=== PATIENT | female | born 1970 | race Asian ===

== ENCOUNTER 2018-06-28 05:18 | Inpatient (IN) | payer OTHER ==
[2018-06-27 10:36] VITALS: BMI 21.2
--- NOTE | 2018-06-28 06:57 | HP ---
History & Physical Update - Physical Physical: No Change - Assessment Assessment: No Change - Plan Plan: No Change (for supracervical abdominal hysterectomy, bilateral salpingectomy)
[2018-06-28] MEDS ORDERED: DEXAMETHASONE SOD PHOSPHATE/PF 10 MG/ML SDV ONE (07:23)
[2018-06-28] MEDS ORDERED: BUPIVACAINE HCL/PF 0.5% (5MG/ML) 10 ML VIAL ONE (07:24)
[2018-06-28] MEDS ORDERED: SEVOFLURANE 250 ML BTL ONE (07:24)
[2018-06-28] MEDS ORDERED: DEXMEDETOMIDINE HCL 200 MCG/2 ML ML IVPB ONE (07:24)
[2018-06-28] MEDS ORDERED: DESFLURANE GAS 240 ML BOTTLE IH ONE (07:24)
[2018-06-28] MEDS ORDERED: KETAMINE HCL 200 MG/20 ML VIAL ONE (07:32)
[2018-06-28] MEDS ORDERED: ROCURONIUM BROMIDE 50 MG/5 ML VIAL ONE (07:32)
[2018-06-28] MEDS ORDERED: MIDAZOLAM HCL 2 MG/2 ML SINGLE DOSE VIAL ONE ×2 (07:32)
[2018-06-28] MEDS ORDERED: SUCCINYLCHOLINE CHLORIDE 200 MG/10 ML VIAL ONE (07:32)
[2018-06-28] MEDS ORDERED: PROPOFOL 20 ML ONE ×3 (07:32→09:00)
[2018-06-28] MEDS ORDERED: DEXAMETHASONE SOD PHOSPHATE 4 MG/1 ML VIAL ONE ×2 (07:38→08:53)
[2018-06-28] MEDS ORDERED: SODIUM CHLORIDE 0.9% P/F 10 ML VIAL IJ ONE (07:38)
[2018-06-28] MEDS ORDERED: ceFAZolin SODIUM 1 GM VIAL ONE (07:38)
[2018-06-28] MEDS ORDERED: KETOROLAC TROMETHAMINE 30 MG/1 ML VIAL ONE (07:38)
[2018-06-28] MEDS ORDERED: LIDOCAINE HCL/PF 2% SDV 5ML VIAL ONE (07:38)
[2018-06-28] MEDS ORDERED: ONDANSETRON 4 MG/2 ML VIAL IVPUSH PRN (07:40)
[2018-06-28] MEDS ORDERED: LACTATED RINGERS SOLUTION 1,000 ML IV SCH (07:45)
--- NOTE | 2018-06-28 07:52 | HP ---
Past Medical History - Primary Care Physician PCP:: Faheem Coppola - Admission Chief Complaint: pelvic pain, menometrorrhagia, fibroid uterus History of Present Illness: 48 yof with hx of menometrorrhagia, pelvic pain, and fibroid uterus admitted for supracervical abdominal hysterectomy, bilateral salpingectomy . risk of procedure and ulternatives to surgery discussed . History Source: Patient Limitations to Obtaining History: No Limitations - Past Medical History Heme/Onc: Yes: Anemia - Past Surgical History Hx Myomectomy: No Hx Transabdominal Cerclage: No - Smoking History Smoking history: Never smoked Have you smoked in the past 12 months: No - Alcohol/Substance Use Hx Alcohol Use: No - Social History Usual Living Arrangement: Yes: With Spouse History of Recent Travel: No Home Medications - Allergies Allergies/Adverse Reactions: Allergies Allergy/AdvReac Type Severity Reaction Status Date / Time banana Allergy Intermediate ITCH IN Verified 05/13/16 10:37 THROAT No Known Drug Allergies Allergy Verified 06/07/12 11:02 SEASONAL Allergy Uncoded 06/07/12 08:21 - Home Medications Home Medications: Ambulatory Orders Calcium Carbonate [Calcium] 500 mg PO DAILY 05/13/16 Ferrous Sulfate [Feosol] 325 mg PO DAILY 05/13/16 Loratadine [Claritin -] 10 mg PO DAILY PRN 05/13/16 Review of Systems - Review of Systems Constitutional: reports: No Symptoms Eyes: reports: No Symptoms HENT: reports: No Symptoms Neck: reports: No Symptoms Cardiovascular: reports: No Symptoms Respiratory: reports: No Symptoms Gastrointestinal: reports: Abdominal Pain Genitourinary: reports: Frequency, Vaginal Bleeding Breasts: reports: No Symptoms Reported Musculoskeletal: reports: No Symptoms Integumentary: reports: No Symptoms Neurological: reports: No Symptoms Endocrine: reports: No Symptoms Hematology/Lymphatic: reports: No Symptoms Psychiatric: reports: No Symptoms 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: Vital Signs Temperature 98.2 F 06/28/18 07:17 Pulse Rate 92 H 06/28/18 07:17 Respiratory Rate 18 06/28/18 07:17 Blood Pressure 142/87 06/28/18 07:17 O2 Sat by Pulse Oximetry (%) 98 06/28/18 07:22 Constitutional: Yes: Well Nourished, No Distress, Calm Eyes: Yes: WNL, Conjunctiva Clear, EOM Intact HENT: Yes: WNL, Atraumatic, Normocephalic Neck: Yes: WNL, Supple, Trachea Midline Cardiovascular: Yes: WNL, Regular Rate and Rhythm Respiratory: Yes: WNL, Regular, CTA Bilaterally Gastrointestinal: Yes: WNL ...Rectal Exam: Yes: WNL Renal/: Yes: WNL External Genitalia: Yes: Normal Vaginal Exam: Yes: Normal Cervix: Yes: Normal Uterus: Yes: Enlarged, Mass (fibroid uterus, 12 weeks) Adnexa: Not Palpable: Left, Right Breast(s): Yes: WNL Musculoskeletal: Yes: WNL Extremities: Yes: WNL Edema: No Integumentary: Yes: WNL Neurological: Yes: WNL, Alert, Oriented ...Motor Strength: WNL Psychiatric: Yes: WNL, Alert, Oriented Problem List - Problem (1) Menometrorrhagia Code(s): N92.1 - EXCESSIVE AND FREQUENT MENSTRUATION WITH IRREGULAR CYCLE (2) Pelvic pain Code(s): R10.2 - PELVIC AND PERINEAL PAIN (3) Fibroid Code(s): D21.9 - BENIGN NEOPLASM OF CONNECTIVE AND OTHER SOFT TISSUE, UNSP Assessment/Plan admit for supracervical abdominal hysterectomy, bilateral salpingectomy
[2018-06-28] MEDS ORDERED: CEFAZOLIN 1 GM/D5W 1 GM/50 ML BAG IVPB ONE (07:54)
[2018-06-28] MEDS ORDERED: ceFAZolin SODIUM 1 GM VIAL IVPB ONE (08:28)
[2018-06-28] MEDS ORDERED: GLYCOPYRROLATE 0.2 MG/1 ML VIAL ONE ×2 (09:33→09:35)
[2018-06-28] MEDS ORDERED: NEOSTIGMINE METHYLSULFATE 0.5 MG/ML - 10 ML MDV ONE (09:39)
[2018-06-28] MEDS ORDERED: IBUPROFEN 800 MG/8 ML IJ IVPB PRN (10:00)
[2018-06-28] MEDS ORDERED: ELECTROLYTE-148 SOLN 1,000 ML IV SCH (10:00)
[2018-06-28] MEDS: ONDANSETRON 4 MG/2 ML VIAL IVPUSH PRN ×2 (10:15→21:00)
[2018-06-28] MEDS ORDERED: ACETAMINOPHEN 1000 MG/100 ML VIAL (NON FORMULARY) IVPB ONE (10:30)
[2018-06-28] MEDS ORDERED: MIDAZOLAM HCL 2 MG/2 ML SINGLE DOSE VIAL IVPUSH ONE (10:30)
--- NOTE | 2018-06-28 11:38 | OP ---
DATE OF OPERATION: 06/28/2018 PREOPERATIVE DIAGNOSES: Menometrorrhagia, pelvic pain, fibroid uterus. POSTOPERATIVE DIAGNOSES: Menometrorrhagia, pelvic pain, fibroid uterus. PROCEDURE: Abdominal hysterectomy and bilateral salpingectomy. SURGEON: Faheem Coppola MD CHARTERED ACCOUNTANT: Zaire Arias MD ANESTHESIA: General. ANESTHESIOLOGIST: Phillip Esparza MD ESTIMATED BLOOD LOSS: 150 mL DESCRIPTION OF OPERATIVE PROCEDURE: Patient was taken to the operating room. Under adequate general anesthesia, abdomen and perineum were prepped and draped. Pfannenstiel abdominal skin incision was made. Abdominal wall was cut layer by layer. Anterior peritoneum was exposed and incised. Upon entry into the abdominal cavity, upper abdomen was checked, was normal. Bowels were packed away. The uterus was enlarged consistent with adenomyosis and also had a posterior cervical fibroid. No pelvic adhesions. Bladder and ovaries, both the ovaries appeared to be normal. Then, both cornual regions were grasped with the care of [place], and then, the uterus was delivered. Then, both round ligaments were identified bilaterally, clamped with the bipolar cautery, cauterized, and cut. Then, the anterior leaf of the broad ligament was opened. Bladder was pushed down. Then, right and left tube were removed with a bipolar LigaSure cautery, cauterizing along the mesosalpinx. Then, a hole was made into the broad ligament. Ovarian ligament was grasped with a Marline clamp, cut, and the clamp replaced with 0 Vicryl ties bilaterally. Then, bladder was further pushed down. The uterine artery was identified bilaterally, clamped, and cut, and the clamp replaced with 0 Vicryl suture bilaterally. There was a large posterior uterine fibroid which was extended to the lower part of cervix. Therefore, most portion of the cervix had to be removed secondary to the posterior fibroid. Then, paracervical area was grasped with Marline clamp, cut, and the clamp replaced with 0 Vicryl suture bilaterally. Then, cervicovaginal angle was reached below the fibroid and then grasped with Marline clamp, cut, and the clamp replaced with 0 Vicryl suture bilaterally. At this time, the specimen was removed with cautery, and then, vaginal cuff was closed with interrupted suture of 1 Vicryl. Hemostasis was established. The pelvic cavity was several times irrigated. No active bleeding was seen. All the lap pad, sponge, and instrument count were correct. Then, peritoneum was closed with 0 Vicryl continuous suture. Muscles were brought together with interrupted suture of 0 Vicryl. Fascia was closed with 0 Vicryl continuous suture, subcutaneous fat with interrupted suture of 0 Vicryl, and the skin was closed with 3-0 Vicryl continuous subcuticular suture. Patient tolerated the procedure well, left the OR in good condition. Julio [id number]
[2018-06-28] MEDS ORDERED: HYDROmorphone *PCA* 10MG/50ML DISP.SYRIN PCA ONE (12:06)
[2018-06-28] MEDS ORDERED: HYDROmorphone *PCA* 10MG/50ML DISP.SYRIN PCA SCH ×2 (13:45→14:38)
[2018-06-28] MEDS ORDERED: CEFAZOLIN 1 GM/D5W 1 GM/50 ML BAG IVPB SCH (18:00)
[2018-06-28] MEDS ORDERED: BISACODYL 5 MG TABLET.DR (FP) PO PRN (19:14)
[2018-06-29] MEDS ORDERED: ceFAZolin SODIUM 1 GM VIAL ONE ×2 (02:02→10:06)
[2018-06-29] MEDS ORDERED: DEXTROSE 5%-WATER - 50 ML IVPB ONE ×2 (02:02→10:06)
[2018-06-29] MEDS: CEFAZOLIN 1 GM in DEXTROSE 5%-WATER - 50 ML IVPB SCH ×2 (02:09→10:14)
[2018-06-29] MEDS: oxyCODONE HCL 5 MG TABLET PO PRN ×2 (02:21→22:02)
[2018-06-29 08:04] LABS: HEMATOCRIT 34.7 % (32.4-45.2); HEMOGLOBIN 11.3 GM/dL (10.7-15.3); MCHC 32.5 g/dl (32.0-36.0); MEAN CELL VOLUME 86.2 fl (80-96); MEAN PLT VOLUME 8.8 fl (7.5-11.1); PLATELET COUNT 327 K/MM3 (134-434); RBC 4.03 M/mm3 (3.60-5.2); RDW 12.9 % (11.6-15.6); WHITE BLOOD COUNT 12.3 K/mm3 (4.0-10.0)
[2018-06-29 08:17] LABS: ANION GAP 7 MMOL/L (8-16); BLOOD UREA NITROGEN 9 mg/dL (7-18); CALCIUM 8.2 mg/dL (8.5-10.1); CHLORIDE 105 mmol/L (98-107); CO2 26 mmol/L (21-32); CREATININE 0.5 mg/dL (0.55-1.3); GLUCOSE,RANDOM 100 mg/dL (74-106); SODIUM 138 mmol/L (136-145)
[2018-06-29] MEDS ORDERED: oxyCODONE HCL 5 MG TABLET PO PRN (08:20)
[2018-06-29] MEDS ORDERED: PCA PUMP KEY 1 EACH EACH ONE (08:24)
[2018-06-29] MEDS: IBUPROFEN 600 MG TABLET (FP) PO PRN ×3 (08:30→22:03)
[2018-06-29] MEDS: SIMETHICONE 80 MG TAB.CHEW (FP) PO PRN ×3 (08:30→22:06)
[2018-06-29] MEDS: ACETAMINOPHEN 325 MG TABLET (FP) PO PRN ×2 (08:33→14:04)
[2018-06-29] MEDS: ENOXAPARIN NA (PORCINE) 40 MG/0.4 ML DISP.SYRIN SQ SCH (10:15)
--- NOTE | 2018-06-29 11:27 | PN ---
Progress Note (short form) - Note Progress Note: pod 1, s/o abdominal hysterectomy . doing well, has mild supra pubic pain CBC, BMP 06/29/18 06:00 06/29/18 06:00 Last Vital Signs Temp Pulse Resp BP Pulse Ox 98.5 F 107 H 20 133/84 98 06/29/18 06:00 06/29/18 06:00 06/29/18 06:00 06/29/18 06:00 06/28/18 21:00 abdomen soft, no distension, no cva incision dry, no bleeding no calf tenderness plan ambulate, advance diet,, pain mangement plan for d/c home in am Problem List - Problems (1) Menometrorrhagia Code(s): N92.1 - EXCESSIVE AND FREQUENT MENSTRUATION WITH IRREGULAR CYCLE (2) Pelvic pain Code(s): R10.2 - PELVIC AND PERINEAL PAIN (3) Fibroid Code(s): D21.9 - BENIGN NEOPLASM OF CONNECTIVE AND OTHER SOFT TISSUE, UNSP
--- NOTE | 2018-06-29 15:57 | PN ---
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
--- NOTE | 2018-06-30 07:24 | PN ---
Progress Note (short form) - Note Progress Note: pod 2 doing well, passing gas , voids ok CBC, BMP 06/29/18 06:00 06/29/18 06:00 Last Vital Signs Temp Pulse Resp BP Pulse Ox 97.9 F 86 20 130/77 99 06/29/18 21:00 06/29/18 21:00 06/29/18 21:00 06/29/18 21:00 06/29/18 21:00 abdomen soft, no distension, no cva incision dry, clean no calf tenderness plan d/c home , follow up office 2 weeks Problem List - Problems (1) Menometrorrhagia Code(s): N92.1 - EXCESSIVE AND FREQUENT MENSTRUATION WITH IRREGULAR CYCLE (2) Pelvic pain Code(s): R10.2 - PELVIC AND PERINEAL PAIN (3) Fibroid Code(s): D21.9 - BENIGN NEOPLASM OF CONNECTIVE AND OTHER SOFT TISSUE, UNSP
--- NOTE | 2018-06-30 08:44 | DS ---
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 Vital Signs: Vital Signs Temperature 97.9 F 06/29/18 21:00 Pulse Rate 86 06/29/18 21:00 Respiratory Rate 20 06/29/18 21:00 Blood Pressure 130/77 06/29/18 21:00 O2 Sat by Pulse Oximetry (%) 99 06/29/18 21:00 Constitutional: Yes: Well Nourished, No Distress, Calm Eyes: Yes: WNL, Conjunctiva Clear, EOM Intact HENT: Yes: WNL, Atraumatic, Normocephalic Neck: Yes: WNL, Supple, Trachea Midline Cardiovascular: Yes: WNL, Regular Rate and Rhythm Respiratory: Yes: WNL, Regular, CTA Bilaterally Gastrointestinal: Yes: WNL ...Rectal Exam: Yes: WNL Renal/: Yes: WNL Breast(s): Yes: WNL Musculoskeletal: Yes: WNL Extremities: Yes: WNL Edema: No Integumentary: Yes: WNL Wound/Incision: Yes: Clean/Dry, Well Approximated, Sutures Intact Neurological: Yes: WNL, Alert, Oriented ...Motor Strength: WNL Psychiatric: Yes: WNL, Alert, Oriented Labs: CBC, BMP 06/29/18 06:00 06/29/18 06:00 Discharge Summary Reason For Visit: PELVIC PAIN, EDOMETRIOSIS OF UTERUS Current Active Problems Fibroid (Acute) Menometrorrhagia (Acute) Pelvic pain (Acute) Procedures: Principal: abdominal hysterectomy, bilateral salpingectomy Condition: Good - Instructions Diet, Activity, Other Instructions: regular diet, follow up office 2 weeks, if fever, severe pain, vaginal bleeding, call nd Referrals: Faheem Coppola MD [Staff Physician] - Disposition: HOME - Home Medications Comprehensive Discharge Medication List: Ambulatory Orders Calcium Carbonate [Calcium] 500 mg PO DAILY 05/13/16 Ferrous Sulfate [Feosol] 325 mg PO DAILY 05/13/16 Loratadine [Claritin -] 10 mg PO DAILY PRN 05/13/16 Ibuprofen [Motrin -] 600 mg PO TID #90 tablet 06/30/18
[2018-06-30 09:22] VITALS: BP 127/85; PULSE 83; TEMP 98.2
[2018-06-30] MEDS: ENOXAPARIN NA (PORCINE) 40 MG/0.4 ML DISP.SYRIN SQ SCH (09:37)
[2018-06-30] MEDS: IBUPROFEN 600 MG TABLET (FP) PO PRN (09:37)
[2018-06-30] MEDS: SIMETHICONE 80 MG TAB.CHEW (FP) PO PRN (09:37)
[2018-06-30] MEDS: ACETAMINOPHEN 325 MG TABLET (FP) PO PRN (09:38)
--- NOTE | 2018-06-30 15:53 | PATH ---
Surgical Pathology Report Patient Name: PAO BELTRÁN [facility]. Rec. 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 Specimen(s) Received UTERUS, PORTION OF CERVIX, WITH BILATERAL TUBES Clinical History Pelvic pain, endometriosis of uterus, cervical fibroid, adenomyosis Final Diagnosis UTERUS, BILATERAL FALLOPIAN TUBES, PORTION OF CERVIX, SUPRACERVICAL HYSTERECTOMY AND BILATERAL SALPINGECTOMY: ADENOMYOSIS . ONE LEIOMYOMA . SECRETORY TYPE ENDOMETRIUM . RIGHT FALLOPIAN TUBE WITH PARATUBAL CYST AND ENDOSALPINGIOSIS. LEFT FALLOPIAN TUBE WITH ENDOSALPINGIOSIS. PORTION OF ENDOCERVICAL TISSUE WITH SQUAMOUS METAPLASIA. Electronically Signed Harrison Pritchard M.D. Gross Description Received in formalin labeled "uterus, bilateral fallopian tubes, portion of cervix," is a 321 g supracervically amputated uterus with bilateral attached fallopian tubes. The specimen measures 11.5 cm from superior to inferior, 8.0 cm from left to right and 5.5 cm from anterior to posterior. The serosa is pink-montgomery and smooth. The endometrial cavity measures 6 cm in length and 3 cm from cornu to cornu. The endometrium is montgomery-red and measures up to 0.2 cm in thickness. The myometrium is montgomery-pink, firm with whorled architecture and foci of hemorrhage, consistent with adenomyosis. The myometrium focally measures up to 4.5 cm in thickness. There is a 1.2 cm in greatest dimension intramural nodule present. The cut surface of the nodule is montgomery and rubbery with whorled architecture. No areas of hemorrhage or necrosis are identified. The left fimbriated fallopian tube measures 5 cm in length. The outer surface is north purple and smooth. Sectioning reveals an unremarkable lumen. The right fimbriated fallopian tube measures 5 cm in length. The outer surface is north purple and smooth with a 1.0 cm in greatest dimension paratubal cyst attached to the fimbria. Sectioning of the fallopian tube reveals an unremarkable lumen. Party Supply Specialist sections are submitted in 11 cassettes as follows: 1-cervical stump margin of resection; 8-1-[id number] endomyometrium; 7-0-vsehepxuh endomyometrium; 6-additional myometrium (adenomyosis); 7-intramural nodule; 8-left fallopian tube fimbria; 9-cross sections of left fallopian tube; 10-right fallopian tube fimbria with paratubal cyst; 11-cross sections of right fallopian tube. 06/29/201806/29/2018
== END 2018-06-30 10:30 | disposition home or self-care (01) | DRG 743 ==
LOC: JSAMEDAYSX 05:18 → J3W 14:28
PROVIDERS: ADMIT Obstetrics & Gynecology; ATTEND Obstetrics & Gynecology
PROC: 0UT70ZZ Resection of Bilateral Fallopian Tubes, Open Approach (ICD-10-PCS; 2018-06-28)
PROC: 0UT90ZL Resection of Uterus, Supracervical, Open Approach (ICD-10-PCS; principal; 2018-06-28 08:00)
DX: D25.9 Leiomyoma of uterus, unspecified (principal); N80.0 Endometriosis of uterus
CPT/HCPCS: 36415; 80048; 84703; 85027; 86850; 86900; 86901; 88307-TC; 94760

== ENCOUNTER 2020-10-29 10:50 | Emergency (ER) | payer OTHER ==
[2020-10-29 11:17] VITALS: BP 115/65; PULSE 71; TEMP 97.8; BMI 25.9
[2020-10-29] MEDS ORDERED: TETANUS AND DIPHTHERIA TOXOID 0.5 ML DISP.SYRIN IM ONE (11:48)
[2020-10-29] MEDS ORDERED: DIPHTH,PERTUSS(ACELL),TET 0.5 ML DISP.SYRIN IM ONE (11:55)
[2020-10-29 12:24] LABS: EOS % 5.8 % (0-4.5); HEMATOCRIT 38.8 % (32.4-45.2); LYMPH % 36.2 % (8-40); MCH 29.8 pg (25.7-33.7); MCHC 33.6 g/dl (32.0-36.0); MEAN CELL VOLUME 88.7 fl (80-96); MEAN PLT VOLUME 8.5 fl (7.5-11.1); MONO % 9.3 % (3.8-10.2); NEUT % 47.7 % (42.8-82.8); PLATELET COUNT 325 K/MM3 (134-434); RBC 4.38 M/mm3 (3.60-5.2); RDW 13.2 % (11.6-15.6); WHITE BLOOD COUNT 7.6 K/mm3 (4.0-10.0)
[2020-10-29 12:59] LABS: POTASSIUM 4.1 mmol/L (3.5-5.1)
[2020-10-29 13:02] LABS: CALCIUM 9.1 mg/dL (8.5-10.1)
[2020-10-29 13:03] LABS: ALBUMIN 3.7 g/dl (3.4-5.0)
[2020-10-29 13:04] LABS: BLOOD UREA NITROGEN 11.7 mg/dL (7-18); URIC ACID 4.3 mg/dL (2.6-7.2)
[2020-10-29 13:05] LABS: CREATININE 0.6 mg/dL (0.55-1.3)
[2020-10-29 13:06] LABS: TOT PROT 7.4 g/dl (6.4-8.2)
[2020-10-29 13:07] LABS: PHOSPHOROUS 3.4 mg/dL (2.5-4.9)
[2020-10-29 13:08] LABS: BILIRUBIN,TOTAL 0.9 mg/dL (0.2-1)
[2020-10-29 13:50] LABS: HIV INTERPRETATION NEGATIVE (NEGATIVE)
== END 2020-10-29 14:33 | disposition home or self-care (01) ==
LOC: JERFT 10:50
PROC: 3E0234Z Introduction of Serum, Toxoid and Vaccine into Muscle, Percutaneous Approach (ICD-10-PCS; principal; 2020-10-29)
DX: S61.239A Puncture wound without foreign body of unspecified finger without damage to nail, initial encounter (principal); Z77.21 Contact with and (suspected) exposure to potentially hazardous body fluids
CPT/HCPCS: 36415; 80053; 82465; 82977; 83615; 84100; 84478; 84550; 85025; 86317; 86704; 86706; 86803; 87340; 87389; 99284-25